=== PATIENT | male | born 2005 | race Caucasian/White ===

== ENCOUNTER 2023-07-07 16:28 | Emergency (ER) | payer MEDICAID ==
[~2023-07-07] VITALS: Ht 188 cm; Wt 136.1 kg
[2023-07-07 16:41] VITALS: BP 144/88
[2023-07-07] MEDS ORDERED: Ketorolac Tromethamine 10 MG Tab PO ONE (18:05)
[2023-07-07] MEDS ORDERED: Acetaminophen 500 MG Tab PO ONE (18:05)
== END 2023-07-07 18:20 | disposition home or self-care (01) ==
LOC: ER 16:28
DX: S01.111A Laceration without foreign body of right eyelid and periocular area, initial encounter (principal); X58.XXXA Exposure to other specified factors, initial encounter; Y93.72 Activity, wrestling
CPT/HCPCS: 12011; 99282-25; A9270